=== PATIENT | female | born 1975 | race Two or more races ===

== ENCOUNTER 2019-08-16 06:15 | Day surgery (SDC) | payer OTHER ==
[2019-08-16] MEDS ORDERED: ALEVE220 M1 PO (13:34)
[2019-08-16] MEDS ORDERED: ACETAMINOPHEN-1 EAC2 PO (13:34)
[2019-08-16] MEDS ORDERED: DUI500 PO (13:34)
== END 2019-08-16 16:30 | disposition home or self-care (01) ==
LOC: CIR.AMB 06:15
DX: S42.022A Displaced fracture of shaft of left clavicle, initial encounter for closed fracture (principal)

== ENCOUNTER 2019-09-29 09:32 | Outpatient (CLI) | payer OTHER ==
[~2019-09-29 09:32] MED LIST: ACETAMINOPHEN-1 EAC2 PO; ALEVE220 M1 PO; DUI500 PO
== END 2019-09-29 09:39 | disposition home or self-care (01) ==
LOC: MAMO-SONO 09:32
DX: Z12.31 Encounter for screening mammogram for malignant neoplasm of breast (principal); N64.4 Mastodynia